=== PATIENT | male | born 1965 | race American Indian/Alaskan Native ===

== ENCOUNTER 2017-06-13 08:57 | Emergency (ER) | payer OTHER ==
[2017-06-13 11:01] LABS: UA SPECIFIC GRAVITY <=1.005 (1.005-1.035); microscopic required? YES; urine erythrocyte TRACE (NEGATIVE)
[2017-06-13 12:51] VITALS: BP 105/64
== END 2017-06-13 12:51 | disposition home or self-care (01) ==
LOC: ED 08:57
PROVIDERS: Emergency Medicine
DX: N45.2 Orchitis (principal); R33.9 Retention of urine, unspecified; I10 Essential (primary) hypertension
CPT/HCPCS: Q0092

== ENCOUNTER 2017-06-15 10:17 | Emergency (ER) | payer OTHER ==
[2017-06-15 10:34] VITALS: BP 133/83
== END 2017-06-15 11:26 | disposition home or self-care (01) ==
LOC: ED 10:17
DX: N45.2 Orchitis (principal); E78.00 Pure hypercholesterolemia, unspecified; G89.29 Other chronic pain; M54.9 Dorsalgia, unspecified; I11.0 Hypertensive heart disease with heart failure; I50.9 Heart failure, unspecified

== ENCOUNTER 2019-01-13 10:50 | Emergency (ER) | payer OTHER ==
[~2019-01-13] VITALS: Ht 167.6 cm; Wt 129.3 kg
[2019-01-13 10:57] VITALS: BP 136/83; Ht 167.6 cm; Wt 129.3 kg
== END 2019-01-13 12:47 | disposition home or self-care (01) ==
LOC: ED 10:50
DX: J06.9 Acute upper respiratory infection, unspecified (principal); I50.9 Heart failure, unspecified; I11.0 Hypertensive heart disease with heart failure; E78.00 Pure hypercholesterolemia, unspecified; G89.29 Other chronic pain; M54.9 Dorsalgia, unspecified

== ENCOUNTER 2019-01-20 09:56 | Emergency (ER) | payer OTHER ==
[~2019-01-20] VITALS: Ht 167.6 cm; Wt 126.6 kg
[2019-01-20 09:59] VITALS: BP 162/84; Ht 167.6 cm; Wt 126.6 kg
== END 2019-01-20 12:01 | disposition home or self-care (01) ==
LOC: ED 09:56
DX: J06.9 Acute upper respiratory infection, unspecified (principal); I11.0 Hypertensive heart disease with heart failure; I50.9 Heart failure, unspecified; E78.00 Pure hypercholesterolemia, unspecified; G89.29 Other chronic pain
CPT/HCPCS: Q0092